=== PATIENT | male | born 1985 | race Caucasian/White ===

== ENCOUNTER 2022-01-03 15:40 | Outpatient (CLI) | payer OTHER, SELFPAY ==
[2022-01-03 10:35] LABS: Albumin* 4.7 g/dL (3.3-5.0); Chloride* 104 mmol/L (96-114)
[2022-01-03 10:36] LABS: Potassium* 4.5 mmol/L (3.6-5.1); Sodium* 138 mmol/L (135-149)
[2022-01-03 10:38] LABS: Aspartate Amino Transferase* 22 U/L (12-35); Bilirubin Total* 0.6 mg/dL (0.1-1.5); Carbon Dioxide* 26 mmol/L (20-32); Cholesterol* 243 mg/dL (90-199); Creatinine* 1.1 mg/dL (0.5-1.5); Estimated Glomerular Filt Rate 88 ml/min; Total Protein* 7.3 g/dL (6.0-8.3)
[2022-01-03 10:39] LABS: Alanine Aminotransferase* 28 U/L (4-50); Alkaline Phosphatase* 51 U/L (40-150); Blood Urea Nitrogen* 17 mg/dL (5-24); Calcium* 9.8 mg/dL (8.4-10.6); Glucose* 117 mg/dL (60-115); HDL Cholesterol* 34 mg/dL (>=40); LDL Cholesterol Calculated 175 mg/dL (<100); Triglycerides* 170 mg/dL (40-149)
== END 2022-01-03 15:41 | disposition home or self-care (01) ==
PROVIDERS: PCP Family Medicine; Visit Provider Family Medicine
DX: Z00.00 Encounter for general adult medical examination without abnormal findings (principal); E78.5 Hyperlipidemia, unspecified; I10 Essential (primary) hypertension; E66.9 Obesity, unspecified
CPT/HCPCS: 80053; 80061

== ENCOUNTER 2022-09-23 19:46 | Outpatient (CLI) | payer OTHER, SELFPAY ==
--- NOTE | 2022-10-01 08:37 | W.PM.SLEEP ---
Sleep Study Details Details Interpreting Provider: Timo Date of Sleep Study: 09/23/22 Sleep Study Details: STUDY TYPE:? Home unattended ? BMI:? 38.6 ORDERING PROVIDER:? Annette INDICATION:? Concerns about sleep apnea ? SLEEP SUMMARY:? 391.9 minutes monitored RESPIRATORY SUMMARY:? AHI 20.7, supine 74.2, left lateral 31.5, right lateral 8.5 Low oxygen 88 0.3% of study oxygen less than 90% Snoring 44.2% PERIODIC LIMB MOVEMENTS OF SLEEP:? Not recorded during home study CARDIAC:? Range 45-97, mean 57.5 beats per minute IMPRESSION:? Moderate obstructive sleep apnea worse in the supine and left lateral positions RECOMMENDATION: Treatment options include CPAP AutoSet 4-17. A dental appliance is on likely to be beneficial. Weight loss would be recommended as well.
== END 2022-09-23 19:47 | disposition home or self-care (01) ==
LOC: SLEEP 19:47
PROVIDERS: PCP Family Medicine; Visit Provider Family Medicine
DX: G47.33 Obstructive sleep apnea (adult) (pediatric) (principal)
CPT/HCPCS: 95806

== ENCOUNTER 2023-07-07 08:23 | Outpatient (CLI) | payer OTHER, SELFPAY ==
--- OUTSIDE RECORDS SUMMARY | 2023-07-08 06:34 | XMS_ITS | Clinical Summary ---
Author Name Unknown Organization [employer] [facility] Address [place], [place] [address] Care Team Providers Care Computer Game Tester Name Role Phone Wade Hernandez MD Primary Care Provider [phone] Allergies No known active allergies Medications No known medications Immunizations Name Administration Dates Next Due Tdap 07/20/2013 Social History Tobacco Use Types Packs/Day Years Used Date Smoking Tobacco: Never Assessed Sex and Gender Information Value Date Recorded Sex Assigned at Not on file Gender Identity Not on file Sexual Orientation Not on file Obstetrics History Last Filed Vital Signs Vital Sign Reading Time Taken Comments Blood Pressure 133/89 07/20/2013 7:53 PM CDT Pulse 94 07/20/2013 7:53 PM CDT Temperature 36.9 ??C (98.4 ??F) 07/20/2013 7:53 PM CD T Respiratory Rate 20 07/20/2013 7:53 PM CDT Oxygen Saturation 98% 07/20/2013 7:53 PM CDT Inhaled Oxygen Concentration - - Weight 98.3 kg (216 lb 12.8 oz) 07/20/2013 7:53 PM CDT Height 180.3 cm (5' 10.98) 07/20/2013 7:53 PM C DT Body Mass Index 30.25 07/20/2013 7:53 PM CDT Plan of Treatment Not on file Care Teams Computer Game Tester Relationship Specialty Start Date End Date Wade Hernandez MD [address] [place] [address] PCP - General Family Practice 07/20/13
== END 2023-07-07 08:24 | disposition home or self-care (01) ==
LOC: NFLDREF 07-08 06:32
PROVIDERS: PCP Family Medicine; Referring Provider Family Medicine; Visit Provider Family Medicine
DX: E78.5 Hyperlipidemia, unspecified (principal)
CPT/HCPCS: 80053; 80061

== ENCOUNTER 2023-12-25 08:11 | Outpatient (CLI) | payer OTHER, SELFPAY | END 2023-12-25 08:12 | disposition home or self-care (01) | LOC: NFLDREF 13:34 | PROVIDERS: PCP Family Medicine; Referring Provider Family Medicine; Visit Provider Family Medicine | DX: E78.5 Hyperlipidemia, unspecified (principal) | CPT/HCPCS: 80061; 84450; 84460 ==

== ENCOUNTER 2024-08-04 08:45 | Outpatient (CLI) | payer OTHER, SELFPAY | END 2024-08-04 08:46 | disposition home or self-care (01) | PROVIDERS: PCP Family Medicine; Referring Provider Family Medicine; Visit Provider Family Medicine | DX: E78.5 Hyperlipidemia, unspecified (principal); R73.03 Prediabetes | CPT/HCPCS: 80053; 80061 ==